=== PATIENT | male | born 1960 | race Caucasian/White ===

== ENCOUNTER 2021-10-21 17:26 | Inpatient (IN) | payer BC, SELFPAY ==
[2021-10-21] VITALS (7 sets, daily range): BP systolic 109–146; BP diastolic 79–97; PULSE 65–71; RESP 8–30; TEMP 36.3–36.4; O2SAT 88–94; BMI 34.9; BMI 35.9
--- NOTE | 2021-10-21 18:08 | CRLHL7_ITS ---
For Patients: As a result of the Cures Act, medical imaging exams and procedure reports are released immediately into your electronic medical record. You may view this report before your referring provider. If you have questions, please contact your health care provider. INDICATION: Shortness of breath TECHNIQUE: Chest 1 view COMPARISON: 03/06/2010 seen FINDINGS: No pleural effusion or pneumothorax. No definitive infiltrate. Similar right infrahilar vessels considered normal. Cardiac silhouette is unchanged. Mild degenerative changes. IMPRESSION: No acute findings. Dictated by Cedrick Michele MD @ 10/21/2021 7:23:31 PM (Electronically Signed)
[2021-10-21 18:49] LABS: Basophils Absolute Auto 0.03 K/uL (0.00-0.30); Basophils Percent Auto 0.4 % (0.0-3.0); Eosinophils Absolute Auto 0.19 K/uL (0.00-0.50); Eosinophils Percent Auto 2.6 % (0.0-7.0); Hematocrit 44.4 % (37.0-53.0); Immature Granulocytes Abs Auto 0.01 K/uL (0.00-0.30); Lymphocytes Percent Auto 9.3 % (20-44); Mean Corpuscular HGB Conc 32 gm/dL (32-36); Mean Corpuscular Hemoglobin 29 pg (26-34); Mean Corpuscular Volume 93 fL (80-100); Monocytes Percent Auto 10.2 % (0.0-11.0); Neutrophils Percent Auto 77.4 % (42.0-72.0); Platelet Count* 243 K/uL (140-440); RDW Coefficient of Variation % 16.1 % (11.5-15.5); Red Blood Count 4.76 m/uL (4.30-5.90); Slide Review Reflex No; White Blood Count* 7.23 K/uL (4.50-11.00)
[2021-10-21 18:50] LABS: Chloride* 101 mmol/L (96-114)
[2021-10-21 18:51] LABS: Potassium* 4.3 mmol/L (3.6-5.1); Sodium* 137 mmol/L (135-149)
[2021-10-21 18:53] LABS: Creatinine* 1.2 mg/dL (0.5-1.5); Est. Creatinine Clearance* 56.23; Estimated Glomerular Filt Rate 69 ml/min
[2021-10-21 18:54] LABS: Blood Urea Nitrogen* 38 mg/dL (7-30); Calcium* 9.2 mg/dL (8.4-10.6); Carbon Dioxide* 29 mmol/L (20-32); Glucose* 151 mg/dL (60-115)
[2021-10-21 18:56] LABS: ABG PCO2 47 mmHG (35-45); Base Excess ABG 4.8 mmol/L (-3.0-3.0); HCO3 ABG 30 mmol/L (21-28); Oxygen Saturation ABG 88 % (92-100); PO2 ABG 52.9 mmHG (80-105); TCO2 ABG 27 mmol/l (21-30); pH ABG 7.42 (7.35-7.45)
[2021-10-21 19:02] LABS: NT Pro B Type NatriureticPept* 8690 PG/mL (0-125)
[2021-10-21 19:06] LABS: Troponin I* 0.03 ng/mL (0.01-0.04)
[2021-10-21 19:18] LABS: PCR FLU A Negative PCR FLU A (Negative); PCR FLU B Negative PCR FLU B (Negative); PCR RSV Negative PCR RSV (Negative)
[2021-10-21 19:19] LABS: Partial Thromboplastin Time* 30 Seconds (23-33)
[2021-10-21 19:20] LABS: INR 1.54 (0.91-1.10); Prothrombin Time 18.9 Seconds
--- NOTE | 2021-10-21 19:23 | ED_ITS ---
HPI - SOB/Dyspnea General Date Seen: 10/21/21 Chief Complaint: Shortness of Breath/Dyspnea Stated Complaint: Retaining Fluid Time Seen by Provider: 10/21/21 17:35 Source: patient and family Mode of arrival: ambulatory Limitations: no limitations History of Present Illness HPI Narrative: patient is a 61-year-old gentleman who is seen today for evaluation of increased fluid. he worked all day as a sought [employer], then called the clinic as he has gained approximately 15 lb in the last 2 weeks. Primarily he has gained this in his abdomen and lower legs. He does not really feel short of breath with this, but does admit to me it is just harder getting around. He has no chest pain, coughing, fevers chills or wheezing. He is taking torsemide twice a day and says this really is in causing a lot of improvement in his swelling. All the clinic, and they recommended that he came to the emergency room. Related Data Allergies Allergy/AdvReac Type Severity Reaction Status Date / Time pioglitazone Allergy Intermediate All body Verified 10/21/21 17:53 swelling penicillin V Allergy Mild Verified 10/21/21 17:53 Bee venom Allergy Mild Uncoded 10/21/21 17:53 Review of Systems Status of ROS: Reports: 10 or more systems reviewed and unremarkable except as noted in History and below PFSH [facility] Social History Smoking Status: Former smoker Second hand tobacco smoke exposure: No Non-prescribed substance use: denies use Exam Narrative: Exam Narrative: Patient is peaking normally, problem with slurring words, oriented x3. Head eyes ears nose and throat exam show equal pupils, no scleral icterus, extraocular muscles are normal, no facial droop, speech is normal, trachea normal and midline. Thyroid normal midline palpable not enlarged. Chest shows symmetrical rise bilaterally, normal auscultation with no wheezes, no increased work of breathing, no overt bruising or lesions seen, no tenderness is noted on auscultation. Heart sounds normal with no S3-S4 no murmurs clicks or gallops. Abdomen shows no obvious masses or hepatosplenomegaly, no organomegaly, bowel sounds are normal in all quadrants. He does however have dullness at the level of his umbilicus consistent with ascites. No tenderness is noted also in all quadrants. Upper and lower extremities show normal power, normal range of motion, pulses are normal, sensations normal, fine motor movements are normal, pelvis is stable to rocking. Cervical spine shows normal range of motion, and palpably not tender. Thoracic spine shows normal range of motion, and palpably not tender, lumbar spine shows no tenderness to palpation percussion and is otherwise normal range of motion. Skin shows no rashes, petechiae or eccymosis. 2+ edema of his lower extremities is noted also. Const: Vital Signs, click to edit/add: Vital Signs - 24 hr 10/21/21 17:43 10/21/21 18:00 10/21/21 19:00 Temperature 97.6 F Pulse Rate [Apical ] 70 65 71 Respiratory Rate 30 H 8 L 20 Blood Pressure [Ri ght Upper Arm] 134/97 H 141/79 H 135/79 Pulse Oximetry 90 90 88 Oxygen Delivery Me thod Room Air Room Air Room Air 10/21/21 19:30 Temperature Pulse Rate [Apical ] 71 Respiratory Rate 11 L Blood Pressure [Ri ght Upper Arm] 109/92 H Pulse Oximetry 91 Oxygen Delivery Me thod Course Vital Signs Vital signs: Initial Vital Signs Temperature 97.6 F 10/21/21 17:43 Temperature Source Temporal Artery Scan 10/21/21 17:43 Pulse Rate 70 10/21/21 17:43 Pulse Rhythm 10/21/21 17:43 Respiratory Rate 30 H 10/21/21 17:43 Blood Pressure 134/97 H 10/21/21 17:43 Blood Pressure Mean 109 10/21/21 17:43 Blood Pressure Position Supine 10/21/21 17:43 Pulse Oximetry 90 10/21/21 17:43 Oxygen Delivery Method 10/21/21 17:43 Vital Signs Temperature 97.6 F 10/21/21 17:43 Pulse Rate 70 10/21/21 17:43 Respiratory Rate 30 H 10/21/21 17:43 Blood Pressure 134/97 H 10/21/21 17:43 Pulse Oximetry 90 10/21/21 17:43 Oxygen Delivery Method 10/21/21 17:43 Temperature 97.6 F 10/21/21 17:43 Pulse Rate 71 10/21/21 19:30 Respiratory Rate 11 L 10/21/21 19:30 Blood Pressure 109/92 H 10/21/21 19:30 Pulse Oximetry 91 10/21/21 19:30 Oxygen Delivery Method 10/21/21 19:00 MDM - SOB/Dyspnea MDM Narrative Medical decision making narrative: Life-threatening differential diagnosis includes occluded COPD exacerbation, pulmonary edema, acute coronary syndromes, pulmonary embolism, pneumonia, and pneumothorax. Other differential diagnosis considerations include asthma, bronchitis as well as other etiologies Patient worked all day but is hypoxic, with saturations at 88%. He is not on home oxygen, I would benefit for coming in and some diuresis. Do believe this is a combination of his primary pulmonary hypertension, congestive heart failure, causing his hypoxia. I do not have his old records from [facility], but would endeavor as the hospitalist to get these and see where he is normally at. He is on Xarelto, but given his elevated D-dimer would suggest this is chest CT which will he will have done pre admission. I did speak to Dr. Souza from [facility], who agreed to admit the person for diuresis and further care and oxygen therapy. Differential Diagnosis Differential diagnosis: Likely acute exacerbation of chronic obstructive airways disease, congestive heart failure, community acquired pneumonia, asthma with exacerbation and pulmonary embolism Medical Records Attestation: I reviewed the patient's medical records. Lab Data Attestation: I reviewed the patient's lab results. Labs: Lab Results 10/21/21 10/21/21 10/21/21 Range/Units 18:30 18:30 18:30 WBC (4.50-11.00) K/uL RBC (4.30-5.90) m/uL Hgb (13.5-17.5) gm/dL Hct (37.0-53.0) % MCV (80-100) fL MCH (26-34) pg MCHC (32-36) gm/dL RDW Coeff of Paz (11.5-15.5) % Plt Count (140-440) K/uL Neut % (Auto) (42.0-72.0) % Lymph % (Auto) (20-44) % [place] % (Auto) (0.0-11.0) % Eos % (Auto) (0.0-7.0) % Baso % (Auto) (0.0-3.0) % Neut # (Auto) (1.7-7.0) K/uL Lymph # (Auto) (0.90-2.90) K/uL [place] # (Auto) (0.00-0.90) K/UL Eos # (Auto) (0.00-0.50) K/uL Baso # (Auto) (0.00-0.30) K/uL Abs Immat Gran (auto) (0.00-0.30) K/uL INR 1.54 H (0.91-1.10) APTT 30 (23-33) Seconds D-Dimer Quant (PE/DVT) 5.25 H (0.00-0.50) ug/ml ABG pH (7.35-7.45) ABG pCO2 (35-45) mmHG ABG pO2 (80-105) mmHG ABG HCO3 (21-28) mmol/L ABG Total CO2 (21-30) mmol/l ABG O2 Saturation (92-100) % ABG Base Excess (-3.0-3.0) mmol/L Sodium 137 (135-149) mmol/L Potassium 4.3 (3.6-5.1) mmol/L Chloride 101 (96-114) mmol/L Carbon Dioxide 29 (20-32) mmol/L BUN 38 H (7-30) mg/dL Creatinine 1.2 (0.5-1.5) mg/dL Estimated Creat Clear 56.23 Estimated GFR 69 ml/min Glucose 151 H (60-115) mg/dL Calcium 9.2 (8.4-10.6) mg/dL Troponin I 0.03 (0.01-0.04) ng/mL NT-Pro-B Natriuret Pep 8690 H (0-125) PG/mL SARS-CoV-2 (PCR) Negative SARS-CoV-2 (Negative) Influenza Type A (PCR) Negative PCR FLU A (Negative) Influenza Type B (PCR) Negative PCR FLU B (Negative) RSV (PCR) Negative PCR RSV (Negative) 10/21/21 10/21/21 Range/Units 18:35 18:55 WBC 7.23 (4.50-11.00) K/uL RBC 4.76 (4.30-5.90) m/uL Hgb 14.0 (13.5-17.5) gm/dL Hct 44.4 (37.0-53.0) % MCV 93 (80-100) fL MCH 29 (26-34) pg MCHC 32 (32-36) gm/dL RDW Coeff of Paz 16.1 H (11.5-15.5) % Plt Count 243 (140-440) K/uL Neut % (Auto) 77.4 H (42.0-72.0) % Lymph % (Auto) 9.3 L (20-44) % [place] % (Auto) 10.2 (0.0-11.0) % Eos % (Auto) 2.6 (0.0-7.0) % Baso % (Auto) 0.4 (0.0-3.0) % Neut # (Auto) 5.60 (1.7-7.0) K/uL Lymph # (Auto) 0.70 L (0.90-2.90) K/uL [place] # (Auto) 0.70 (0.00-0.90) K/UL Eos # (Auto) 0.19 (0.00-0.50) K/uL Baso # (Auto) 0.03 (0.00-0.30) K/uL Abs Immat Gran (auto) 0.01 (0.00-0.30) K/uL INR (0.91-1.10) APTT (23-33) Seconds D-Dimer Quant (PE/DVT) (0.00-0.50) ug/ml ABG pH 7.42 (7.35-7.45) ABG pCO2 47 H (35-45) mmHG ABG pO2 52.9 L (80-105) mmHG ABG HCO3 30 H (21-28) mmol/L ABG Total CO2 27 (21-30) mmol/l ABG O2 Saturation 88 L (92-100) % ABG Base Excess 4.8 H (-3.0-3.0) mmol/L Sodium (135-149) mmol/L Potassium (3.6-5.1) mmol/L Chloride (96-114) mmol/L Carbon Dioxide (20-32) mmol/L BUN (7-30) mg/dL Creatinine (0.5-1.5) mg/dL Estimated Creat Clear Estimated GFR ml/min Glucose (60-115) mg/dL Calcium (8.4-10.6) mg/dL Troponin I (0.01-0.04) ng/mL NT-Pro-B Natriuret Pep (0-125) PG/mL SARS-CoV-2 (PCR) (Negative) Influenza Type A (PCR) (Negative) Influenza Type B (PCR) (Negative) RSV (PCR) (Negative) ECG Data Attestation: I personally reviewed and interpreted this ECG as follows: ECG interpretation date: 10/21/21 Prior ECG tracings: available for review Interpretation: Right bundle-branch block, T-wave abnormality with inverted T-waves throughout the precordium when comparison to previous EKG from 2017 he right bundle-branch block with the T-wave inversion is new. Discharge Plan Discharge Clinical Impression: Congestive heart failure, Primary pulmonary hypertension Patient Disposition: Admitted As Inpatient Condition: Stable Follow Up/Referrals: Giovanni Dacosta MD [Primary Care Provider] -
[2021-10-21 19:25] LABS: SARS PCR* Negative SARS-CoV-2 (Negative)
[2021-10-21 19:28] LABS: D Dimer Quantitative* 5.25 ug/ml (0.00-0.50)
--- NOTE | 2021-10-21 19:41 | CRLHL7_ITS ---
For Patients: As a result of the Century Cures Act, medical imaging exams and procedure reports are released immediately into your electronic medical record. You may view this report before your referring provider. If you have questions, please contact your health care provider. INDICATION: Shortness of breath TECHNIQUE: CT chest pulmonary PE protocol acquired with 95 cc Isovue 370 IV contrast. COMPARISON: December 31, 2016 FINDINGS: Cardiovascular structures: Normal vascular enhancement of the pulmonary arteries, no sign of pulmonary embolism. Heart size is normal. Coronary artery calcifications. The ascending aorta measures 4.1 cm in diameter. Mediastinum and jesse: No mass or adenopathy. Lungs: Clear. Pleura and pericardium: No effusions. Chest wall and axilla: No mass or adenopathy. Upper abdomen: Cirrhosis. Small to moderate amount of ascites in the upper abdomen. Bones: No significant findings. IMPRESSION: No pulmonary embolism, pneumonia, or acute into thoracic abnormality. Dilatation of the ascending aorta measuring 4.1 cm. Cirrhosis with small amount to moderate amount of ascites in the upper abdomen. Coronary artery disease. Please note that all CT scans at this facility use dose modulation, iterative reconstruction, and/or weight-based dosing when appropriate to reduce radiation dose to as low as reasonably achievable. Dictated by Danae Carrasco MD @ 10/21/2021 9:40:48 PM (Electronically Signed)
[2021-10-21] MEDS: 0.9 % SODIUM CHLORIDE 500 ML 500 ML IV (20:57)
--- NOTE | 2021-10-21 22:31 | P.IMHP_ITS ---
Hospitalist- H&P: HPI History of Present Illness Date Seen: 10/21/21 Chief complaint: Retaining Fluid Narrative: Jl Seo is a 61 year old male who has a history of pulmonary hypertension who presents with a 15 lb weight gain over the past 2 weeks. Pt is under the care of [facility] and has known history of ascites as well as peripheral edema as a result of his pulmonary hypertension and diastolic dysfunction. Due to the increased symptoms, pt presented to the emergency room tonight and was found to have hypoxia on his blood gas with a ph of 7.42 a CO2 of 47 an Oxygen of 52.9 and an oxygen saturation of 88%. Ascites and worsening edema also noted. Pt has a history of atrial fibrillation but tonight showed Sinus Rhythm with RBBB with Inverted T waves. D-dimer was elevated at 5.25 and BNP was 8690. Pt underwent a CT of the chest which showed no evidence of pulmona ry embolism but does show a 4.1 cm dilation of the Ascending Aorta. Due to the increased edema and ascites pt was admitted for further evaluation and treatment. I was able to review the [facility] medical record with Dr. Araya Cardiology who recommended stopping the Amlodipine and treating with IV Lasix at 40 mg q8 hours. If symptoms do not improve he recommends adding Metazolone at 5 mg daily Review of Systems Status of ROS: Reports: 10 or more systems reviewed and unremarkable except as noted in History and below [facility] Medical History (Updated 10/21/21 @ 23:18 by Lauri Valenzuela MD) Ascites Atrial fibrillation Coronary artery disease Diabetes mellitus Diastolic dysfunction Hypertension Pulmonary hypertension Social History Smoking Status: Former smoker Second hand tobacco smoke exposure: No Non-prescribed substance use: denies use Meds Home Medications and Allergies Home Medication Comments: Pt takes the following: Amlodipine 5 mg daily, Atorvastatin 80 mg daily, Plavix 75 mg daily, Fenofibrate 145 mg daily, Lasix 40 mg daily, Glimepiride 2 mg daily, Lisinopril 20 mg daily, Metformin 500 in the morning and 1000 mg in the evening, Riveroxaban 20 mg daily Sitagliptin 50 mg daily Allergies Allergy/AdvReac Type Severity Reaction Status Date / Time pioglitazone Allergy Intermediate All body Verified 10/21/21 17:53 swelling penicillin V Allergy Mild Verified 10/21/21 17:53 Bee venom Allergy Mild Uncoded 10/21/21 17:53 Exam Narrative: Exam Narrative: EXAM GENERAL: Patient appears comfortable but fluid overloaded. EYES: No scleral icterus. THYROID: no thyroid nodules or thyromegaly. LYMPH: No supraclavicular or cervical lymphadenopathy. SKIN: Visible skin seen during exam normal or with benign process only. EXT: 2+ equal peripheral edema. HEART: Distant heart tones noted LUNGS: Decreased breath sounds bilaterally ABD: Distended abd with palpable fluid wave PSYCH: Good eye contact, speech is not pressured. Const: Vital Signs, click to edit/add: Vital Signs - 24 hr 10/21/21 17:43 10/21/21 18:00 10/21/21 19:00 Temperature 97.6 F Pulse Rate [Apical ] 70 65 71 Respiratory Rate 30 H 8 L 20 Blood Pressure [Ri ght Upper Arm] 134/97 H 141/79 H 135/79 Pulse Oximetry 90 90 88 Oxygen Delivery Me thod Room Air Room Air Room Air 10/21/21 19:30 Temperature Pulse Rate [Apical ] 71 Respiratory Rate 11 L Blood Pressure [Ri ght Upper Arm] 109/92 H Pulse Oximetry 91 Oxygen Delivery Me thod Hospitalist - H&P: Result Labs Labs: Short CBC 10/21/21 Range/Units 18:35 WBC 7.23 (4.50-11.00) K/uL Hgb 14.0 (13.5-17.5) gm/dL Hct 44.4 (37.0-53.0) % Plt Count 243 (140-440) K/uL BMP 10/21/21 18:30 Sodium 137 Potassium 4.3 Chloride 101 Carbon Dioxide 29 BUN 38 H Creatinine 1.2 Glucose 151 H Calcium 9.2 Cardiac Enzymes 10/21/21 Range/Units 18:30 Troponin I 0.03 (0.01-0.04) ng/mL Assessment and Plan Assessment and plan (1) Primary pulmonary hypertension: Status: Acute Assessment and Plan: Again I did review the [facility] medical record with Dr. Araya who recommended Lasix 40 mg IV [id number] which we did start tonight. We will place on telemetry, serial troponins, oxygen/oxymetry with leg elevation. Echocardiogram and morning labs including CBC, CMP, BNP. If pt fails to diurese, consider addition of Metazalone at 5 mg daily. (2) Ascites: Status: Acute Assessment and Plan: Will follow daily wt I and O. I did specifically ask about covering for SBP which Cardiology did not recommend. (3) Diastolic dysfunction: Status: Acute Assessment and Plan: Treatment as above with Echo in the am. (4) Diabetes mellitus: Status: Chronic Assessment and Plan: Continue outpt regiment with FSBS qid. (5) Coronary artery disease: Status: Chronic Assessment and Plan: Serial Troponins with Echo in am. (6) Hypertension: Status: Chronic Assessment and Plan: Holding Amlodipine per Cardiology's recommendations. Will continue to follow blood pressure carefully. (7) Atrial fibrillation: Status: Chronic Plan Pt actually in sinus rhythm. Will continue Riveroxaban
[2021-10-21] MEDS: FUROSEMIDE 10 MG/ML inj 40 MG IVP (23:40)
[2021-10-22] VITALS (11 sets, daily range): BP systolic 105–159; BP diastolic 70–89; PULSE 61–73; RESP 16–22; TEMP 36.3–36.7; O2SAT 2–94
--- NOTE | 2021-10-22 06:46 | PC.NURSE ---
Alert and orientedx4. Sats goal >90. On 2L NC O2 to ,maintain sats above 90. Vitals stable. Denies pain. Lasix administered as per orders; 1100cc urine output overnight. Ambulates independently in the room. No concerns noted overnight
[2021-10-22 07:02] LABS: Basophils Absolute Auto 0.05 K/uL (0.00-0.30); Basophils Percent Auto 0.8 % (0.0-3.0); Eosinophils Percent Auto 3.2 % (0.0-7.0); Hematocrit 43.1 % (37.0-53.0); Hemoglobin* 13.5 gm/dL (13.5-17.5); Immature Granulocytes Abs Auto 0.01 K/uL (0.00-0.30); Lymphocytes Percent Auto 10.8 % (20-44); Mean Corpuscular HGB Conc 31 gm/dL (32-36); Mean Corpuscular Hemoglobin 30 pg (26-34); Mean Corpuscular Volume 95 fL (80-100); Monocytes Percent Auto 12.3 % (0.0-11.0); Neutrophils Percent Auto 72.7 % (42.0-72.0); Platelet Count* 241 K/uL (140-440); RDW Coefficient of Variation % 16.3 % (11.5-15.5); Red Blood Count 4.54 m/uL (4.30-5.90); White Blood Count* 6.28 K/uL (4.50-11.00)
[2021-10-22 07:13] LABS: Slide Review Reflex No
[2021-10-22 07:29] LABS: Albumin* 3.7 g/dL (3.3-5.0); Chloride* 102 mmol/L (96-114)
[2021-10-22] MEDS: FUROSEMIDE 10 MG/ML inj 40 MG IVP ×3 (07:29→17:38)
[2021-10-22 07:30] LABS: Sodium* 141 mmol/L (135-149)
[2021-10-22 07:32] LABS: Alkaline Phosphatase* 52 U/L (40-150); Aspartate Amino Transferase* 24 U/L (12-35); Bilirubin Total* 0.8 mg/dL (0.1-1.5); Blood Urea Nitrogen* 32 mg/dL (7-30); Carbon Dioxide* 30 mmol/L (20-32); Creatinine* 1.2 mg/dL (0.5-1.5); Est. Creatinine Clearance* 56.23; Estimated Glomerular Filt Rate 69 ml/min; Total Protein* 6.2 g/dL (6.0-8.3)
[2021-10-22 07:33] LABS: Alanine Aminotransferase* 17 U/L (4-50); Calcium* 8.7 mg/dL (8.4-10.6); Glucose* 133 mg/dL (60-115)
[2021-10-22 07:37] LABS: NT Pro B Type NatriureticPept* 7510 PG/mL (0-125)
[2021-10-22 07:41] LABS: Troponin I* 0.03 ng/mL (0.01-0.04)
[2021-10-22] MEDS: SITAGLIPTIN PHOSPHATE 50 MG TABLET PO (09:29)
[2021-10-22] MEDS: FENOFIBRATE 145 MG TABLET PO (09:29)
[2021-10-22] MEDS: METFORMIN 500 MG TABLET PO (09:29)
[2021-10-22] MEDS: CLOPIDOGREL 75 MG TABLET PO (09:30)
[2021-10-22] MEDS: lisinopriL 20 MG TABLET PO (09:30)
[2021-10-22] MEDS: POTASSIUM BICARB 25 MEQ EFFERVESCENT TAB PO (09:36)
--- NOTE | 2021-10-22 10:54 | NUTR.NU ---
RDN visited with patient regarding diet education related to hx of HTN, CAD, and increased fluid upon admission. Patient agreed to visit, reports he has followed a 2 gm Sodium diet for ~2-3 years. He is followed by [facility]. He accepted educational materials regarding a Heart-Healthy, reduced Sodium diet, however declined reviewing materials with RDN at this time. He had no questions or concerns during visit. RDN's contact information was provided, and patient was encouraged to contact RDN if he had any questions or concerns. RDN will continue to monitor.
--- NOTE | 2021-10-22 11:22 | PM.IMPN1 ---
Progress Note: A&P Assessment and plan (1) Heart failure with preserved ejection fraction: Problem details: Echocardiogram from 02/06/2021 showed normal left ventricular size, severely increased wall thickness, normal global systolic function with an ejection fraction of 66%. Status: Acute Assessment and Plan: We will continue IV diuresis. Consider switching to torsemide for outpatient management. (2) LVH (left ventricular hypertrophy): Status: Acute Assessment and Plan: Continue aggressive medical management of heart failure (3) Diabetes mellitus: Status: Chronic Assessment and Plan: Monitor and manage with normal outpatient diabetes medicines and sliding scale insulin (4) Coronary artery disease: Status: Chronic Assessment and Plan: No evidence of current ischemia. Electrocardiogram shows a new right bundle branch block but no significant new ischemic changes (5) Atrial fibrillation: Problem details: Paroxysmal Status: Chronic Assessment and Plan: Currently in sinus rhythm (6) Ascites: Status: Acute Assessment and Plan: Presumably secondary to heart failure. Plan Admit for diuresis, monitoring of vital signs, fluid and electrolytes. Repeat echocardiogram. Time Spent With Patient Total time spent: Total time spent today is 40 minutes, 30 minutes in coordination of care discussing with patient and other providers ongoing management of heart failure Subjective Date Seen: 10/22/21 Interval history: 61-year-old male admitted to the hospital with acute on chronic dyspnea. Patient has longstanding history of heart failure with preserved ejection fraction. Patient notes recent weight increase of 15 lb over the last couple weeks. He had an increase in his furosemide from 40 mg once a day to 40 mg twice a day but noted that provided no benefit or weight loss. He is noting increasing abdominal distension increased ankle edema. He has had chronic dyspnea but is gotten worse recently. On admission he was found to be hypoxic. It was felt that he had hypoxia secondary to heart failure. Exam Narrative: Exam Narrative: He is alert and appears in mild increased work of breathing. Supplemental oxygen in place. He is able to give his own history and is oriented to his circumstances. Eyes are normal. Oropharynx is normal. Neck is supple without mass, adenopathy or jugular venous distension. Respirations with a few basilar crackles. No marked wheezing. Somewhat decreased breath sounds. Cardiovascular: S1, S2, relatively regular rhythm. No gallop or rub. Abdomen: Bowel sounds active. Abdomen is soft, protuberant without tenderness or mass. Probable ascites on abdominal examination. Extremities with 2+ edema in both ankles. Diminished pedal pulses. No skin lesions. Const: Vital Signs, click to edit/add: Vital Signs - 24 hr 10/21/21 17:43 10/21/21 18:00 10/21/21 19:00 Temperature 97.6 F Pulse Rate Pulse Rate [Apical ] 70 65 71 Pulse Rate [Pulse Oximeter] Respiratory Rate 30 H 8 L 20 Blood Pressure [Le ft Arm] Blood Pressure [Ri ght Upper Arm] 134/97 H 141/79 H 135/79 Pulse Oximetry 90 90 88 Oxygen Delivery Me thod Room Air Room Air Room Air Oxygen Flow Rate 10/21/21 19:30 10/21/21 22:48 10/21/21 23:18 Temperature 97.3 F L Pulse Rate 66 Pulse Rate [Apical ] 71 Pulse Rate [Pulse Oximeter] 69 Respiratory Rate 11 L 16 Blood Pressure [Le ft Arm] 146/89 H Blood Pressure [Ri ght Upper Arm] 109/92 H Pulse Oximetry 91 94 Oxygen Delivery Me thod Room Air Oxygen Flow Rate 10/21/21 23:18 10/21/21 23:26 10/22/21 05:48 Temperature 97.3 F L 97.3 F L Pulse Rate Pulse Rate [Apical ] Pulse Rate [Pulse Oximeter] 66 61 Respiratory Rate 16 16 Blood Pressure [Le ft Arm] 139/93 H 112/75 Blood Pressure [Ri ght Upper Arm] Pulse Oximetry 94 94 94 Oxygen Delivery Me thod Nasal Cannula Nasal Cannula Nasal Cannula Oxygen Flow Rate 2 2 2 10/22/21 07:48 10/22/21 07:49 10/22/21 07:00 Temperature 97.3 F L Pulse Rate 64 Pulse Rate [Apical ] Pulse Rate [Pulse Oximeter] 73 73 Respiratory Rate 16 22 Blood Pressure [Le ft Arm] 139/86 Blood Pressure [Ri ght Upper Arm] Pulse Oximetry 92 Oxygen Delivery Me thod Nasal Cannula Oxygen Flow Rate 2 Documenting provider has reviewed patient's vital signs: yes Labs Labs: Laboratory Results - last 24 hr 10/21/21 10/21/21 10/21/21 18:30 18:30 18:30 WBC RBC Hgb Hct MCV MCH MCHC RDW Coeff of Paz Plt Count Neut % (Auto) Lymph % (Auto) [place] % (Auto) Eos % (Auto) Baso % (Auto) Neut # (Auto) Lymph # (Auto) [place] # (Auto) Eos # (Auto) Baso # (Auto) Abs Immat Gran (auto) INR 1.54 H APTT 30 D-Dimer Quant (PE/DVT) 5.25 H ABG pH ABG pCO2 ABG pO2 ABG HCO3 ABG Total CO2 ABG O2 Saturation ABG Base Excess Sodium 137 Potassium 4.3 Chloride 101 Carbon Dioxide 29 BUN 38 H Creatinine 1.2 Estimated Creat Clear 56.23 Estimated GFR 69 Glucose 151 H Calcium 9.2 Total Bilirubin AST ALT Alkaline Phosphatase Troponin I 0.03 NT-Pro-B Natriuret Pep 8690 H Total Protein Albumin SARS-CoV-2 (PCR) Negative SARS-CoV-2 Influenza Type A (PCR) Negative PCR FLU A Influenza Type B (PCR) Negative PCR FLU B RSV (PCR) Negative PCR RSV 10/21/21 10/21/21 10/22/21 18:35 18:55 06:19 WBC 7.23 6.28 RBC 4.76 4.54 Hgb 14.0 13.5 Hct 44.4 43.1 MCV 93 95 MCH 29 30 MCHC 32 31 L RDW Coeff of Paz 16.1 H 16.3 H Plt Count 243 241 Neut % (Auto) 77.4 H 72.7 H Lymph % (Auto) 9.3 L 10.8 L [place] % (Auto) 10.2 12.3 H Eos % (Auto) 2.6 3.2 Baso % (Auto) 0.4 0.8 Neut # (Auto) 5.60 4.60 Lymph # (Auto) 0.70 L 0.70 L [place] # (Auto) 0.70 0.80 Eos # (Auto) 0.19 0.20 Baso # (Auto) 0.03 0.05 Abs Immat Gran (auto) 0.01 0.01 INR APTT D-Dimer Quant (PE/DVT) ABG pH 7.42 ABG pCO2 47 H ABG pO2 52.9 L ABG HCO3 30 H ABG Total CO2 27 ABG O2 Saturation 88 L ABG Base Excess 4.8 H Sodium Potassium Chloride Carbon Dioxide BUN Creatinine Estimated Creat Clear Estimated GFR Glucose Calcium Total Bilirubin AST ALT Alkaline Phosphatase Troponin I NT-Pro-B Natriuret Pep Total Protein Albumin SARS-CoV-2 (PCR) Influenza Type A (PCR) Influenza Type B (PCR) RSV (PCR) 10/22/21 06:19 WBC RBC Hgb Hct MCV MCH MCHC RDW Coeff of Paz Plt Count Neut % (Auto) Lymph % (Auto) [place] % (Auto) Eos % (Auto) Baso % (Auto) Neut # (Auto) Lymph # (Auto) [place] # (Auto) Eos # (Auto) Baso # (Auto) Abs Immat Gran (auto) INR APTT D-Dimer Quant (PE/DVT) ABG pH ABG pCO2 ABG pO2 ABG HCO3 ABG Total CO2 ABG O2 Saturation ABG Base Excess Sodium 141 Potassium 4.0 Chloride 102 Carbon Dioxide 30 BUN 32 H Creatinine 1.2 Estimated Creat Clear 56.23 Estimated GFR 69 Glucose 133 H Calcium 8.7 Total Bilirubin 0.8 AST 24 ALT 17 Alkaline Phosphatase 52 Troponin I 0.03 NT-Pro-B Natriuret Pep 7510 H Total Protein 6.2 Albumin 3.7 SARS-CoV-2 (PCR) Influenza Type A (PCR) Influenza Type B (PCR) RSV (PCR)
--- NOTE | 2021-10-22 16:59 | PC.NURSE ---
SHIFT REPORT: PATIENT PLEASANT AND COOPERATIVE, ALERT AND ORIENTED, UP IND WITH STEADY GAIT, WAS ABLE TO WEAN OFF O2 THIS AFTERNOON WITH SATURATIONS 90% AND GREATER ON RA, DECLINING PAIN, TOLERATING 2GM SODIUM DIET, TELE SHOWING NSR WITH BBB, DECLINING SOB AT REST BUT EXPRESSES SOB WITH ACTIVITY.
[2021-10-22] MEDS: METFORMIN 500 MG TABLET 1000 MG PO (17:39)
[2021-10-22] MEDS: RIVAROXABAN 10 MG TABLET 20 MG PO (17:39)
[2021-10-22] MEDS: ATORVASTATIN CALCIUM 40 MG TABLET 80 MG PO (21:41)
[2021-10-23 03:00] VITALS: BP 132/77; PULSE 67; RESP 18; TEMP 36.4; O2SAT 98
--- NOTE | 2021-10-23 06:42 | PC.NURSE ---
Alert and oriented x4. Vitals stable and remains afebrile. O2 4L NC. Desating to 83% while on 2L NC while sleeping. On continuous telemetry monitoring. Denies pain. Self ambulatory in the room. No further concerns noted
[2021-10-23 07:00] VITALS: BP 126/65; PULSE 72; PULSE 92; RESP 18; TEMP 36.7; O2SAT 91
[2021-10-23 07:01] LABS: Chloride* 99 mmol/L (96-114)
[2021-10-23 07:02] LABS: Potassium* 3.9 mmol/L (3.6-5.1); Sodium* 142 mmol/L (135-149)
[2021-10-23 07:04] LABS: Creatinine* 1.2 mg/dL (0.5-1.5); Est. Creatinine Clearance* 56.23; Estimated Glomerular Filt Rate 69 ml/min
[2021-10-23 07:05] LABS: Blood Urea Nitrogen* 31 mg/dL (7-30); Calcium* 8.9 mg/dL (8.4-10.6); Carbon Dioxide* 35 mmol/L (20-32); Glucose* 123 mg/dL (60-115)
[2021-10-23] MEDS: lisinopriL 20 MG TABLET PO (08:55)
[2021-10-23] MEDS: TORSEMIDE 100 MG TABLET 50 MG PO (08:59)
[2021-10-23] MEDS: GLIMEPIRIDE 1 MG TABLET 2 MG PO (09:00)
[2021-10-23] MEDS: SITAGLIPTIN PHOSPHATE 50 MG TABLET PO (09:00)
[2021-10-23] MEDS: CLOPIDOGREL 75 MG TABLET PO (09:01)
[2021-10-23] MEDS: METFORMIN 500 MG TABLET PO (09:01)
[2021-10-23] MEDS: FENOFIBRATE 145 MG TABLET PO (09:01)
[2021-10-23] MEDS: SPIRONOLACTONE 25 MG TABLET PO (09:02)
[2021-10-23 09:52] LABS: ABG PCO2 56 mmHG (35-45); Base Excess ABG 8.9 mmol/L (-3.0-3.0); HCO3 ABG 36 mmol/L (21-28); Oxygen Saturation ABG 76 % (92-100); TCO2 ABG 32 mmol/l (21-30); pH ABG 7.41 (7.35-7.45)
[2021-10-23 09:55] LABS: PO2 ABG 40.5 mmHG (80-105)
--- NOTE | 2021-10-23 09:57 | PM.DS1 ---
DS: Providers Provider Date Seen: 10/23/21 Date of admission: 10/22/21 09:23 Primary care physician: Giovanni Dacosta MD Admitting Clinician: Lauri Valenzuela MD Attending Physician on discharge: Lauri Valenzuela MD Date of Discharge: 10/23/21 DS: Diagnosis Discharge Diagnosis (1) Hypoxia: Status: Acute Problem details: Patient has acute on chronic hypoxia. Acute on chronic hypoxic respiratory failure. Acute hypoxia appears to be due to heart failure with pulmonary edema. This is now improved. Chronic hypoxia appears to be due to combination of factors including heart failure with preserved ejection fraction, pulmonary hypertension, obstructive sleep apnea and suspected central apnea. (2) Central apnea: Status: Acute Problem details: Patient reports his breathing is back to baseline. When he is talking his oxygen saturations drop into the low 80s on room air. He does not feel any dyspnea with this. He is known to have untreated obstructive sleep apnea. He is suspected to have central apnea as well. (3) CO2 retention: Status: Acute Problem details: Arterial blood gas today at baseline on room air shows a pH of 7.41, pCO2 of 55.9, PO2 of 40.5 with a oxygen saturation of 75.9%. (4) Pulmonary hypertension: Status: Acute Problem details: On echocardiogram yesterday the right-sided pressures are 44 mmHg plus right atrial pressure (5) Ascites: Status: Acute Problem details: Noted on abdominal CT (6) Cirrhosis: Status: Acute Problem details: On abdominal CT liver appeared cirrhotic. No obvious cause for this except for possibly chronic right heart failure. Remote history of heavy drinking. Stop drinking 39 years ago. No history of hepatitis. This problem did not get further diagnostic evaluation on this hospital stay. (7) Obstructive sleep apnea: Status: Acute Problem details: Patient has not tolerated treatment in the past (8) Heart failure with preserved ejection fraction: Status: Acute Problem details: Acute on chronic. Echocardiogram from 02/06/2021 showed normal left ventricular size, severely increased wall thickness, normal global systolic function with an ejection fraction of 66%. (9) Diastolic dysfunction: Status: Acute Problem details: Echo shows preserved ejection fraction. Previous echos have also shown LVH (10) Coronary artery disease: Status: Chronic Problem details: No symptoms of coronary disease during this hospital stay and no evidence of ACS (11) Diabetes mellitus: Status: Chronic Problem details: Blood sugars have been fairly well controlled on home medications (12) Proteinuria: Status: Acute Problem details: Patient is undergoing outpatient evaluation for severe proteinuria DS: Summary Hospital Course Hospital Course: 61-year-old male admitted to the hospital with acute on chronic dyspnea. Time of admission he was felt to have heart failure as the cause of this acute on chronic dyspnea. He was treated with diuresis here and had diuresis of about 10 lb of fluid weight. Evidence of pulmonary edema resolved he still appeared to have some ascites on clinical examination. Despite diuresis he continued to be hypoxic though he reported subjectively he felt back to baseline. His hypoxia was felt to be multifactorial and in need of ongoing outpatient evaluation. He has been diagnosed with obstructive sleep apnea and is suspected to have central apnea as well. He did not tolerate treatment for obstructive sleep apnea in the past. He is found have pulmonary hypertension(right side pressure of 44 mmHg plus right atrial pressure). He is started on home oxygen to address his chronic hypoxia. Status at Discharge Functional status at discharge: independent ambulation Overall status at discharge: patient is back to baseline Time Spent with Patient Time attestation: Total time spent providing and/or coordinating discharge services: 50 minutes Time spent: Greater than 30 minutes Exam Const: Vital Signs, click to edit/add: Vital Signs - 24 hr 10/22/21 11:00 10/22/21 14:44 10/22/21 15:07 Temperature 98.1 F Pulse Rate Pulse Rate [Pulse Oximeter] 72 Respiratory Rate 20 Blood Pressure [Le ft Arm] 159/89 H Pulse Oximetry 93 90 89 Oxygen Delivery Me thod Nasal Cannula Nasal Cannula Room Air Oxygen Flow Rate 2 2 10/22/21 15:00 10/22/21 15:00 10/22/21 15:00 Temperature 98.1 F Pulse Rate 69 Pulse Rate [Pulse Oximeter] 63 63 Respiratory Rate 18 18 Blood Pressure [Le ft Arm] 105/70 Pulse Oximetry 92 Oxygen Delivery Me thod Oxygen Flow Rate 10/22/21 19:00 10/22/21 19:37 10/22/21 23:00 Temperature 97.5 F L Pulse Rate 69 Pulse Rate [Pulse Oximeter] 70 Respiratory Rate 18 Blood Pressure [Le ft Arm] 128/71 Pulse Oximetry 94 2 L Oxygen Delivery Me thod Nasal Cannula Nasal Cannula Oxygen Flow Rate 2 10/22/21 23:00 10/22/21 23:00 10/22/21 23:00 Temperature 97.5 F L Pulse Rate Pulse Rate [Pulse Oximeter] 70 64 Respiratory Rate 18 18 18 Blood Pressure [Le ft Arm] 128/76 Pulse Oximetry 94 94 Oxygen Delivery Me thod Nasal Cannula Nasal Cannula Oxygen Flow Rate 3 3 10/23/21 03:00 Temperature 97.6 F Pulse Rate Pulse Rate [Pulse Oximeter] 67 Respiratory Rate 18 Blood Pressure [Le ft Arm] 132/77 Pulse Oximetry 98 Oxygen Delivery Me thod Nasal Cannula Oxygen Flow Rate 3 DS: Data Data Completed and Pending Labs on day of discharge: Labs from last 24 hours 10/23/21 10/23/21 09:05 06:05 ABG pH 7.41 ABG pCO2 56 H ABG pO2 40.5 L* ABG HCO3 36 H ABG Total CO2 32 H ABG O2 Saturation 76 L ABG Base Excess 8.9 H Sodium 142 Potassium 3.9 Chloride 99 Carbon Dioxide 35 H BUN 31 H Creatinine 1.2 Estimated Creat Clear 56.23 Estimated GFR 69 Glucose 123 H Calcium 8.9 Discharge Plan Discharge Disposition: Home, Self-Care Date of Admission: 10/22/21 09:23 Attending Provider on Discharge: Ronen Key Primary Care Provider: Giovanni Dacosta Condition: Stable Anticipated Discharge Date/Time: 10/23/21 11:16 Discharge Medications: New spironolactone 25 mg Tablet 25 mg PO DAILY Qty: 30 0RF torsemide 100 mg Tablet 50 mg PO DAILY Qty: 30 0RF (DME) Home Oxygen Misc See Rx Instructions .Route Qty: 1 0RF Rx Instructions: As directed (DME) Home Oxygen Misc See Rx Instructions .Route Qty: 1 0RF Rx Instructions: 1 L per nasal cannula at rest and 2 L per nasal cannula with activity Continued atorvastatin 80 mg tablet 80 mg PO HS clopidogrel 75 mg tablet 75 mg PO DAILY Label Comments: TAKE 1 TABLET BY MOUTH EVERY DAY. DO NOT. STOP UNLESS DIRECTED TO DO SO BY CARDIOLOGY fenofibrate nanocrystallized 145 mg tablet 145 mg PO DAILY glimepiride 4 mg tablet 2 mg PO DAILY Rx Instructions: TAKE WITH BREAKFAST lisinopril 20 mg tablet 20 mg PO DAILY metformin 1,000 mg tablet 500 - 1,000 mg PO BIDWMEAL Label Comments: 500 MG IN AM 1000 MG IN PM nitroglycerin 0.4 mg tablet, sublingual 0.4 mg sublingual Q5M Rx Instructions: do not exceed 3 doses per episode Xarelto 20 mg tablet 20 mg PO DAILY Rx Instructions: must administer with evening meal Januvia 100 mg tablet 50 mg PO DAILY Changed metoprolol succinate 50 mg tablet extended release 24 hr 100 mg PO DAILY Qty: 30 0RF Discontinued amlodipine 5 mg tablet 5 mg PO DAILY furosemide 40 mg tablet 40 mg PO DAILY Discharge Orders: Discharge Order (Routine); Ordered 10/23/21 Ordered By: Ronen Key Patient Education: Spironolactone (By mouth), Torsemide (By mouth), Dyspnea (DC) Activity Level: No Restrictions Discharge Diet: Heart Healthy (2 gm sodium, low fat) Follow Up Appointments: Giovanni Dacosta MD [Primary Care Provider] - 10/29/21 3:00 pm Forms: [employer] Info Instructions
[2021-10-23 10:48] VITALS: O2SAT 77; O2SAT 85; O2SAT 90
--- NOTE | 2021-10-23 10:53 | W.PM.HOT ---
Acute Home Oxygen Therapy Acute Home Oxygen Therapy Provider Note Provider Note: Patient was admitted on 10/22/21 at 09:23 and will be discharging on 10/23/2021 Patient is desaturating with SATs of 80% on room air due to heart failure with preserved ejection fraction. Alternative therapies have been attempted and have not been successful in maintaining the patient's saturation level above 88%. Supplemental O2 is required. He needs 2 L per minute per nasal cannula at rest and 5 liters/minute per nasal cannula with activity. Duration is 99 months. This patient is mobile within the home and requires portability.
[2021-10-23 11:00] VITALS: BP 132/67; PULSE 93; RESP 18; TEMP 36.8; O2SAT 91
[2021-10-23 11:17] VITALS: O2SAT 80; O2SAT 85; O2SAT 90
--- NOTE | 2021-10-23 11:19 | RESP.3PART ---
3 Part Home O2 Testing Summary RT 3 Part Home O2 Testing Summary Start: 10/23/21 10:46 Freq: Status: Active Protocol: Document 10/23/21 11:17 WILMER (Rec: 10/23/21 11:18 WILMER [id number]) 3 Part Home O2 Testing Summary The following is a summary of the 3 Part O2 Testing Evaluation Date/Time of Testing Date 10/23/21 Time 11:00 Insurance Policy Number [id number] Step 1 SAT on room air at rest (%) 85 Step 2 SAT on room air while exercising (%) 80 Step 3 SAT on supplemental O2 while exercising 90 (%) Liters of supplemental O2 needed while 2 exercising (L) O2 Delivery O2 delivered via Nasal Cannula Comments Comments Patient SAT on room air at rest is 85% and requires 1L NC to keep SAT at 90%. Patient SAT on room air with activity is 80% and requires 2L NC to keep SAT at 90% with activity.
--- NOTE | 2021-10-23 11:27 | W.PM.HOT ---
Acute Home Oxygen Therapy Acute Home Oxygen Therapy Diagnosis for Oxygen Therapy (1) Heart failure with preserved ejection fraction: Comment: Echocardiogram from 02/06/2021 showed normal left ventricular size, severely increased wall thickness, normal global systolic function with an ejection fraction of 66%. Code(s): I50.30 - Unspecified diastolic (congestive) heart failure (2) Pulmonary hypertension: Comment: On echocardiogram yesterday the right-sided pressures are 44 mmHg plus right atrial pressure Code(s): I27.20 - Pulmonary hypertension, unspecified Provider Note Provider Note: Patient was admitted on 10/22/21 at 09:23 and will be discharging on 10/23/2021 Patient is desaturating with SATs of 80 % on room air due to heart failure with preserved ejection fraction and pulmonary hypertension. Alternative therapies have been attempted and have not been successful in maintaining the patient's saturation level above 88%. Supplemental O2 is required. This patient is mobile within the home and requires portability.
[2021-10-23] MEDS: METOPROLOL SUCCINATE (XL) 100 MG TAB PO (11:51)
--- NOTE | 2021-10-23 14:49 | PC.NURSE ---
Patient's discharge instructions were given to patient and all questions were answered. Pt re-educated on the use of his portable oxygen and new medication. Pt educated on the high importance of using the oxygen when at home. IV saline locked and all forms were signed. Escorted to front entrance via nursing staff and wheelchair .
== END 2021-10-23 14:40 | disposition home or self-care (01) | DRG 194 ==
LOC: ED 21:01 → MEDSURG 22:14
PROVIDERS: Family Medicine; Admitting Provider Internal Medicine; Emergency Provider Family Medicine; PCP Family Medicine; Visit Provider Internal Medicine
DX: I11.0 Hypertensive heart disease with heart failure (principal); I50.33 Acute on chronic diastolic (congestive) heart failure; I27.20 Pulmonary hypertension, unspecified; I45.10 Unspecified right bundle-branch block; I77.819 Aortic ectasia, unspecified site; I48.0 Paroxysmal atrial fibrillation; Z79.01 Long term (current) use of anticoagulants; I25.10 Atherosclerotic heart disease of native coronary artery without angina pectoris; E11.9 Type 2 diabetes mellitus without complications; R18.8 Other ascites; J96.21 Acute and chronic respiratory failure with hypoxia; G47.33 Obstructive sleep apnea (adult) (pediatric); G47.31 Primary central sleep apnea; K74.60 Unspecified cirrhosis of liver; R80.9 Proteinuria, unspecified; Z87.891 Personal history of nicotine dependence
CPT/HCPCS: 36415; 36600; 71045; 71260; 80048; 80053; 82803; 82947; 83880; 84484; 85025; 85379; 85610; 85730; 87502; 87634; 87635; 93005; 93306; 94761; 99285; G0378; A9270; J1940; J7120; Q9967